=== PATIENT | female | born 1955 | race Caucasian/White ===

== ENCOUNTER 2017-01-12 13:10 | Emergency (ER) | payer OTHER ==
[~2017-01-12] VITALS: Ht 152.4 cm; Wt 70.3 kg
[2017-01-12 13:13] VITALS: BP 108/71
--- NOTE | 2017-01-12 13:15 | NUR ---
61 /F BIBA FROM THE FIELD FOR FALL WITH BACK AND CHEST WALL PAIN. AWAKE AND ALERT VERY CONFUSED. DENIES N/V/D; SKIN IS PINK/WARM/DRY;LUNGS CLEAR BL; HR EVEN AND REGULAR; PT DENIES ANY FEVER, CP, SOB, OR COUGH AT THIS TIME; PATIENT STATES PAIN OF 8/10 AT THIS TIME; VSS; PATIENT POSITIONED FOR COMFORT; HOB ELEVATED; BEDRAILS UP X2; BED DOWN. ER MADE AWARE OF PT STATUS. Addendum: 01/12/17 at 1341 by [email or web address] STS PT FELL A STORE.DENIES LOC. PT GREEK SPEAKING. Addendum: 01/12/17 at 1341 by [email or web address] DENIES MED HX.
--- NOTE | 2017-01-12 13:32 | NUR ---
EKG DONE BY ESA ANDERSON.
--- NOTE | 2017-01-12 13:35 | NUR ---
Dr. Hanson evaluating patient at bedside.
--- NOTE | 2017-01-12 13:36 | NUR ---
Leandro james in [facility] - 01/12/17 at 1340 by [email or web address] Patient being evaluated by DR MIRANDA at bedside.
--- NOTE | 2017-01-12 13:49 | NUR ---
DAUGHTER AT BEDSIDE . SHE STS PT FELL & HER CHEST HIT A POLE. Addendum: 01/12/17 at 1358 by [facility] DAUGHTER STS PT HAS DEMENTIA. ORIENTED TO HER NAME & FAMILY. PT AMBULATED BY HER SELF AT HOME.
--- NOTE | 2017-01-12 14:01 | NUR ---
Patient appears to be resting comfortably in bed. Vital Signs within normal limits. Respirations even and unlabored.WILL CONTINUE TO MONITOR.
--- NOTE | 2017-01-12 14:03 | NUR ---
X RAY AT BEDSIDE.
[2017-01-12] MEDS ORDERED: KETOROLAC 60 MG/2 ML VIAL IM ONE (14:15)
--- NOTE | 2017-01-12 14:41 | NUR ---
Patient appears to be resting comfortably in bed. Vital Signs within normal limits. Respirations even and unlabored.WILL CONTINUE TO MONITOR.
--- NOTE | 2017-01-12 14:44 | NUR ---
PT DENIES Pain at this time.
--- NOTE | 2017-01-12 14:57 | NUR ---
Dr. Hanson reevaluating patient at bedside.
[2017-01-12 15:07] VITALS: BP 114/96
--- NOTE | 2017-01-12 15:07 | NUR ---
Patient discharged with v/s stable. Written and verbal after care instructions given and explained. Patient alert, oriented and verbalized understanding of instructions. Wheel Chair Assisted with to car. All questions addressed prior to discharge. ID band removed. Patient advised to follow up with PMD. Rx of MOTRIN given. Patient educated on indication of medication including possible reaction and side effects. Opportunity to ask questions provided and answered.
--- NOTE | 2017-01-12 15:09 | NUR ---
Leandro james in ED - 01/12/17 at 1526 by [email or web address] WOUND CARE R FOOT DONE BY DR MIRANDA .PT TOLERATED PROCEDURE WELL.
== END 2017-01-12 15:09 | disposition home or self-care (01) ==
LOC: MED 13:10
DX: R07.89 Other chest pain (principal); F03.90 Unspecified dementia, unspecified severity, without behavioral disturbance, psychotic disturbance, mood disturbance, and anxiety
CPT/HCPCS: 71010; 93005; 96372; 99284; J1885; Q0092